=== PATIENT | female | born 2000 ===

== ENCOUNTER → 2018-11-23 | Outpatient (CLI) | payer OTHER ==
[2018-11-23 10:34] LABS: PLATELET COUNT, AUTOMATED 208 K/uL (150-450)
== END ==
LOC: LAB 09:40
PROVIDERS: ATTEND Obstetrics & Gynecology
DX: R53.83 Other fatigue (principal); R10.9 Unspecified abdominal pain
CPT/HCPCS: 36415; 82040; 82247; 82310; 82374; 82435; 82565; 82607; 82947; 83540; 83550; 84075; 84132; 84155; 84295; 84443; 84450; 84460; 84520; 85025; 87338

== ENCOUNTER → 2018-11-24 | Outpatient (CLI) | payer OTHER | LOC: LAB 11:54 | PROVIDERS: ATTEND Emergency Medicine | DX: Z02.9 Encounter for administrative examinations, unspecified (principal) ==

== ENCOUNTER → 2018-12-04 | Outpatient (CLI) | payer OTHER ==
--- NOTE | 2018-12-04 10:10 | RADIOLOGY IMAGING REPORT ---
FACILITY: [facility] [place] PATIENT NAME: Sita Gomes : 2000 MR: [id number] V: [id number] EXAM DATE: ORDERING PHYSICIAN: ALISHA BREWER TECHNOLOGIST: Location: [facility] Patient: Sita Gomes : 2000 Visit/Account:[id number] Date of Sevice: 12/04/2018 Transabdominal pelvic ultrasound INDICATION: Pelvic pain COMPARISON: None Available FINDINGS: Transabdominal imaging only Uterus measures 7.8 x 3.1 x 4.8 cm. No visualized fibroids or other uterine abnormality. Double wall endometrial stripe is homogeneous measuring up to 6 mm. There is mild free fluid in the cul-de-sac. Urinary bladder is empty. Pelvic vessels appear unremarkable on this examination. Right ovary measures 3.2 x 1.6 x 1.7 cm and shows normal blood flow and contains several small follic les. Left ovary measures 2.8 x 1.7 x 3.0 cm and shows normal blood flow and contains several small follicl es. IMPRESSION: 1. No acute findings. No sonographic explanation for the patient's clinical symptoms. 2. Small amount of free fluid within the pelvis, likely physiologic. Report Dictated By: Aldo Paredes MD at 12/04/2018 10:01 AM Report E-Signed By: Aldo Paredes MD at 12/04/2018 10:02 AM WSN:[id number]
== END ==
LOC: US 04:08
PROVIDERS: ATTEND Obstetrics & Gynecology
DX: R10.2 Pelvic and perineal pain (principal)
CPT/HCPCS: 76856